=== PATIENT | female | born 1975 | race Caucasian/White ===

== ENCOUNTER → 2016-04-25 | Outpatient (CLI) | payer OTHER ==
--- NOTE | 2016-04-26 07:43 | US ---
EXAMINATION TYPE: US thyroid st tissue head/neck DATE OF EXAM: 04/25/2016 4:27 PM COMPARISON: NONE CLINICAL HISTORY: E04.9 Enlarged thyroid. GLAND SIZE: Right Lobe: 4.8 x 1.2 x 1.5 cm Overall Parenchyma: homogenous Left Lobe: 4.1 x 1.2 x 1.4 cm Overall Parenchyma: homogeneous Isthmus Thickness: 0.4 cm NODULES RIGHT: # of nodules measured on right: 0 LEFT: # of nodules measured on left: 0 ISTHMUS: # of nodules measured in the isthmus: 0 Thyroid tissue homogeneous. IMPRESSION: No evidence of solid or cystic thyroid nodule.
== END | disposition home or self-care (01) ==
LOC: RADUSWWP 16:16
PROVIDERS: ATTEND Obstetrics & Gynecology
DX: E04.9 Nontoxic goiter, unspecified (principal)
CPT/HCPCS: 76536

== ENCOUNTER 2018-03-28 06:42 | Day surgery (SDC) | payer OTHER ==
[2018-03-23 08:22] VITALS: BMI 43.0
[~2018-03-28 06:42] MED LIST: LACTATED RINGERS 1,000 ML IV SCH
[2018-03-28 07:18] VITALS: TEMP 98.5
[2018-03-28] MEDS ORDERED: PROPOFOL 10 MG/ML 20 ML VIAL IV ONE (07:35)
[2018-03-28] MEDS ORDERED: MIDAZOLAM 2 MG/2 ML VIAL ONE (07:35)
[2018-03-28] MEDS ORDERED: fentaNYL (PF) 50 MCG/ML 2 ML AMP ONE (07:35)
[2018-03-28 07:59] VITALS: RESP 16
--- NOTE | 2018-03-28 08:01 | P.PCN ---
Date of Procedure: 03/28/18 Procedure(s) Performed: BRIEF HISTORY: Patient is a 43-year-old pleasant female, scheduled for an elective colonoscopy as a part of surveillance of long-standing history of Crohn 's colitis diagnosed in 2003. She remains in clinical remission. PROCEDURE PERFORMED: Colonoscopy with biopsy. PREOPERATIVE DIAGNOSIS: Surveillance of long-standing history of Crohn's colitis. IV sedation per Anesthesia. PROCEDURE: After informed consent was obtained, the patient, was brought into the endoscopy unit. IV sedation was administered by Anesthesia under continuous monitoring. Digital rectal examination was normal. Initially the Olympus CF- 160 flexible video colonoscope was then inserted in the rectum, gradually advanced into the cecum without any difficulty. Careful examination was performed as the scope was gradually being withdrawn. Ileocecal valve and the appendiceal orifice were visualized and appeared normal. Prep was excellent. Mucosa of the cecum, ascending colon, transverse colon, descending colon, sigmoid colon, and rectum appeared normal. Random biopsies were done from the ascending colon to the rectum at every 10 cm intervals to rule out dysplasia. Retroflexion was performed in the rectum and no lesions were seen. The patient tolerated the procedure well. IMPRESSION: Normal-appearing colon from rectum to cecum with no evidence of colitis or colorectal neoplasia. RECOMMENDATIONS: Findings of this examination were discussed with the patient as well as a family. She will follow with the biopsy results and if there is no evidence of dysplasia she was advised to have a repeat surveillance colonoscopy in 2 years from now.
[2018-03-28 08:15] VITALS: BP 117/75; PULSE 93
== END 2018-03-28 08:59 | disposition home or self-care (01) ==
LOC: ORWHC2ENDO 06:42
PROVIDERS: ATTEND Internal Medicine Gastroenterology
DX: K50.90 Crohn's disease, unspecified, without complications (principal); I10 Essential (primary) hypertension; G47.33 Obstructive sleep apnea (adult) (pediatric); F39 Unspecified mood [affective] disorder; K21.9 Gastro-esophageal reflux disease without esophagitis; Z79.3 Long term (current) use of hormonal contraceptives; Z79.899 Other long term (current) drug therapy; Z88.5 Allergy status to narcotic agent; Z98.1 Arthrodesis status
CPT/HCPCS: 81025; 88305; 45380; J2250; J3010; J2704

== ENCOUNTER → 2018-06-01 | Outpatient (CLI) | payer OTHER ==
--- NOTE | 2018-06-01 11:56 | FL ---
EXAMINATION TYPE: FL barium swallow DATE OF EXAM: 06/01/2018 COMPARISON: None HISTORY: Vomiting getting stuck TECHNIQUE: A double air contrast UGI study is performed. FINDINGS: Esophagus dilates caliber has normal contour to the gastroesophageal junction. Gastroesophageal junct ion opens to normal caliber. No intraluminal or extramural defects are evident. Note is made of anter ior cervical fusion lower cervical spine. No reflux is evident. No significant presbyesophagus is evident. Fluoroscopy time: 26 seconds Images: 131 IMPRESSIONS: 1. Unremarkable double contrast esophagram
== END | disposition home or self-care (01) ==
LOC: RADFLWHC 11:05
PROVIDERS: ATTEND Family Medicine
DX: R13.10 Dysphagia, unspecified (principal)
CPT/HCPCS: 74220

== ENCOUNTER → 2020-01-07 | Outpatient (CLI) | payer OTHER ==
--- NOTE | 2020-01-08 10:34 | MM ---
Reason for exam: screening (asymptomatic). Last mammogram was performed 3 years and 9 months ago. History: Patient had first child at age 35. Taking hormonal contraceptives for 3 years beginning at age 38. Physical Findings: A clinical breast exam by your physician is recommended on an annual basis and results should be correlated with mammographic findings. MG Screening Mammo w CAD Bilateral CC and MLO view(s) were taken. Prior study comparison: March 25, 2016, bilateral MG screening mammo w CAD. The breast tissue is almost entirely fat. Finding: There is an intermediate concern, suspicious 5 mm equal density (isodense) mass in the upper quadrant of the right breast on MLO view consistent with probable lymph node. New finding since March 25, 2016. ASSESSMENT: Incomplete: need additional imaging evaluation, BI-RAD 0 RECOMMENDATION: Ultrasound of the right breast. [facility] will attempt to contact patient to return for ultrasound.
== END | disposition home or self-care (01) ==
LOC: RADMAMWWP 16:38
PROVIDERS: ATTEND Obstetrics & Gynecology
DX: Z12.31 Encounter for screening mammogram for malignant neoplasm of breast (principal); Z80.3 Family history of malignant neoplasm of breast
CPT/HCPCS: 77067

== ENCOUNTER → 2020-01-21 | Outpatient (CLI) | payer OTHER ==
--- NOTE | 2020-01-21 10:27 | USB ---
Reason for exam: additional evaluation requested from abnormal screening. History: Patient had first child at age 35. Family history of breast cancer in paternal aunt at age 50. Taking hormonal contraceptives for 5 years beginning at age 38. Physical Findings: Nurse did not find any significant physical abnormalities on exam. US Breast Workup Limited RT Right limited breast ultrasound including focal area of concern, retroareolar and axilla demonstrates a 7 x 4 x 4mm hypoechoic lymph node at 9 o'clock, unclear if this corresponds to the same upper outer quadant density on mammogram. These results were verbally communicated with the patient and result sheet given to the patient on 01/21/20. ASSESSMENT: Probably benign, BI-RAD 3 RECOMMENDATION: Follow-up diagnostic mammogram of the right breast in 6 months.
== END | disposition home or self-care (01) ==
LOC: RADUSWWP 09:00
PROVIDERS: ATTEND Obstetrics & Gynecology
DX: R92.8 Other abnormal and inconclusive findings on diagnostic imaging of breast (principal)

== ENCOUNTER 2024-03-08 08:15 | Day surgery (SDC) | payer OTHER ==
[2024-03-08 08:38] VITALS: TEMP 976
[2024-03-08] MEDS: LACTATED RINGERS 1,000 ML IV SCH (08:46)
[2024-03-08] MEDS: IV FLUID CONTINUATION 1,000 ML IV ONE (08:47)
[2024-03-08 09:02] LABS: Glucose,Whole Blood 132 mg/dL (70-110)
[2024-03-08] MEDS ORDERED: PROPOFOL 10 MG/ML 20 ML VIAL IV ONE (09:45)
--- NOTE | 2024-03-08 10:03 | P.PCN ---
Date of Procedure: 03/08/24 Procedure(s) Performed: BRIEF HISTORY: Patient is a 49-year-old pleasant white female scheduled for an elective colonoscopy as a part of screening for colon cancer. She has Longstanding history of Crohn's colitis diagnosed in 1993. Sent in clinical remission. PROCEDURE PERFORMED: Colonoscopy with random biopsies.. PREOPERATIVE DIAGNOSIS: Longstanding history of Crohn's colitis diagnosed in 1994. IV sedation per Anesthesia. PROCEDURE: After informed consent was obtained, the patient, was brought into the endoscopy unit. IV sedation was administered by Anesthesia under continuous monitoring. Digital rectal examination was normal. Initially the Olympus CF-160 flexible video colonoscope was then inserted in the rectum, gradually advanced into the cecum without any difficulty. Careful examination was performed as the scope was gradually being withdrawn. Ileocecal valve and the appendiceal orifice were visualized and appeared normal. Prep was excellent. Terminal ileum was intubated in 20 cm visualized and appeared normal. Mucosa of the cecum, ascending colon, transverse colon, descending colon, sigmoid colon, and rectum appeared normal. Biopsies were done from the cecum to rectum at every 10 cm interventricle of dysplasia. Retroflexion was performed in the rectum and no lesions were seen. The patient tolerated the procedure well. IMPRESSION: Normal-appearing colon from rectum to cecum with no evidence of colitis or colorectal neoplasia Normal-appearing terminal ileum. RECOMMENDATIONS: Findings of this examination were discussed with the patient as well as her family. She was advised to follow with the biopsy results. The biopsies are all negative for dysplasia she can have repeat colonoscopy in 3 years..
[2024-03-08 10:47] VITALS: BP 123/56; PULSE 68; RESP 16
== END 2024-03-08 11:06 | disposition home or self-care (01) ==
LOC: ORWHC2ENDO 08:15
PROVIDERS: ATTEND Internal Medicine Gastroenterology
DX: K50.10 Crohn's disease of large intestine without complications (principal); I10 Essential (primary) hypertension; E11.9 Type 2 diabetes mellitus without complications; G47.33 Obstructive sleep apnea (adult) (pediatric); F41.9 Anxiety disorder, unspecified; F32.A Depression, unspecified; E66.01 Morbid (severe) obesity due to excess calories; Z79.84 Long term (current) use of oral hypoglycemic drugs; Z79.899 Other long term (current) drug therapy; Z88.5 Allergy status to narcotic agent
CPT/HCPCS: 81025; 88305; 45380; J2704